=== PATIENT | male | born 1980 | race Caucasian/White ===

== ENCOUNTER 2024-12-26 19:32 | Emergency (ER) | payer OTHER, SELFPAY ==
[2024-12-26 19:34] VITALS: BP 152/86; PULSE 111; RESP 20; TEMP 36.7; O2SAT 97; BMI 30.8
--- NOTE | 2024-12-26 19:47 | EKG12_ITS ---
Test Reason : DYSRHYTHMIA Blood Pressure : */* mmHG Vent. Rate : 112 BPM Atrial Rate : 112 BPM P-R Int : 126 ms QRS Dur : 96 ms QT Int : 344 ms P-R-T Axes : 57 79 -17 degrees QTcB Int : 469 ms Sinus tachycardia T wave abnormality, consider inferior ischemia Abnormal ECG Confirmed by DORA GUTIERREZ, GIORGI ([id number]), video news editor SUE FALLON ([id number]) on 12/27/2024 1:28:27 PM Referred By: Confirmed By: GIORGI JOHN MD
--- NOTE | 2024-12-26 19:49 | EDS_ITS ---
HPI History of Present Illness Chief Complaint: Upper Extremity Injury Narrative Narrative: Patient is a 44-year-old male with past medical history of hypertension, hyperlipidemia who presents to the emergency department with a chief complaint of left shoulder pain. He states that he has had shoulder pain for about a week after picking up a heavy desk and the pain has progressively worsened. He states that he can barely move his shoulder and is concerned that he may have dislocated his shoulder. He states that he did not have any direct trauma other than picking this desk up. Patient states that he tried multiple [id number] medications to help his pain and this is not tested prompting him to come here to the emergency department. He states that he is from out of town from [place] for his job. [facility] Medical History Hyperlipemia Hypertension Home Medications ?Medication ?Instructions ?Recorded ?Last Taken ?Type ondansetron 4 mg disintegrating 4 mg PO Q6H PRN nausea and 12/26/24 Unknown Rx tablet vomiting #20 tabs oxycodone-acetaminophen 5 mg-325 1 tab PO Q6H PRN pain 2 days #8 12/26/24 Unknown Rx mg tablet (Endocet) tabs Allergy/AdvReac Type Severity Reaction Status Date / Time Iodinated Contrast Media (iv Allergy Anaphylaxis Verified 12/26/24 19:36 contrast) Social History housing: house Smoking Status: Never smoker ROS ROS ED ROS Narrative Constitutional: Denies any fevers, chills, headaches Neurological: Denies any numbness, tingling Musculoskeletal: Complains of left shoulder pain Skin: Denies rashes or lesions EXAM Physical Exam Narrative Exam Narrative: General: Patient was sitting in a chair at bedside did appear to be uncomfortable secondary to his left shoulder pain Head: Atraumatic, normocephalic Eyes: PERRL bilaterally, EOMI bilaterally, no conjunctival injection noted Neck: Soft, supple, trachea midline Cardiovascular: Patient is tachycardic with a regular rhythm Musculoskeletal: Patient can lift his left shoulder to approximately 90 degrees before starting to develop discomfort he states that he has pain if he attempts to externally rotate his shoulder. Empty can test positive Extremities: Radial pulses +2/4 in the bilateral extremities, +4/5 strength noted in the bilateral upper extremities, patient is able to abduct adduct his fingers bilaterally without difficulty give me a thumbs up and oppose his thumb to his pinky. He is also able to give an okay sign Neurological: Patient following commands knew that he was at [facility] year is 2024. Sensation grossly intact in the median, ulnar, radial and axillary nerve distribution bilaterally Skin: Warm, dry, intact no rashes or lesions noted Const Vital Signs: 12/26/24 19:34 Temperature 98.1 F Temperature Source Oral Pulse Rate 111 H Respiratory Rate 20 H Blood Pressure 152/86 H Blood Pressure Mean 108 Pulse Ox 97 Oxygen Delivery Method Room Air MDM MDM MDM Narrative Medical decision making narrative: Patient is a 44-year-old male who presents to the emergency department chief complaint of left shoulder pain. On the differential diagnose includes but not limited to musculoskeletal strain, rotator cuff tear, shoulder dislocation although have low suspicion for this. Once the workup is obtained reviewed he will be reevaluated. Patient be given Daisy and Zofran. Patient's shoulder x-ray reviewed from [facility] radiology which showed advanced degenerative changes no fracture or dislocation. On reevaluation the patient at 9:00 PM he is feeling better he would like to go home at this point time. Patient is advised to rotate Tylenol and ibuprofen [id number] and use the Percocet/Endocet and Zofran for severe pain he is advised to not operate anything under the influence of this. He is advised that he needs to follow-up with orthopedics for potential MRI as he likely tore his rotator cuff. He was offered sling for comfort he states that he does not want this. He is encouraged return with worsening symptoms or other concerns. All question concerns answered is discharged home in stable condition Discharge Plan Triage Chief Complaint: Upper Extremity Injury ED Provider: Gilmer Crystal Dx/Rx/DC Orders Clinical Impression: Left shoulder pain, Torn rotator cuff, History of hypertension Prescriptions: New ondansetron 4 mg tablet,disintegrating 4 mg PO Q6H PRN (Reason: nausea and vomiting) Qty: 20 0RF oxycodone-acetaminophen [Endocet] 5-325 mg tablet 1 tab PO Q6H PRN (Reason: pain) 2 Days Qty: 8 0RF Primary Care Provider: Care Physician,No Primary Referrals: Spittle,Mati, DO [Med Staff - Active Staff, Orthopedics] Care Physician,No Primary [Primary Care Provider, Medical] Activity Restrictions/Additional Instructions: Your x-ray did not show any dislocations or broken bones. Follow-up with the orthopedic team that you are referred to. Return with worsening symptoms or other concerns. Rotate Tylenol and ibuprofen [id number] when you do this you can take something every 3 hours for pain with max dose Tylenol in 24 hours 4000 mg max dose of ibuprofen and 24 hours 3200 mg. Use the Endocet and Zofran together for severe pain do not operate anything out of the influence of the Endocet as all make you sleepy and drowsy. Print Language: Azeri Disposition Disposition: Home, Self Care
--- NOTE | 2024-12-26 19:56 | RAD_ITS ---
PROCEDURE: SHOULDER MIN 2 VIEWS 12/26/2024 REASON FOR EXAM: SHOULDER PAIN TECHNIQUE: Procedure Code: RADSH Modality: DX Procedure: SHOULDER MIN 2 VIEWS Laterality: Left COMPARISON: None FINDINGS: Bones: Diffuse osteopenia of visualized bones. 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 Soft tissues: Mild soft tissue swelling overlying shoulder joint. 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 No visible fracture if t here is ongoing clinical suspicion for fracture deformity follow-up imaging in 7-10 days is recommended. Reading Location: [id number]
[2024-12-26] MEDS: HYDROcodone Bitartrate/Apap 5/325 Tablet PO (20:06)
[2024-12-26 21:00] VITALS: BP 148/80; PULSE 70; RESP 20; TEMP 36.7; O2SAT 97
== END 2024-12-26 21:21 | disposition home or self-care (01) ==
PROVIDERS: Emergency Provider Emergency Medicine; Visit Provider Emergency Medicine
DX: S46.012A Strain of muscle(s) and tendon(s) of the rotator cuff of left shoulder, initial encounter (principal); M19.012 Primary osteoarthritis, left shoulder; E78.5 Hyperlipidemia, unspecified; I10 Essential (primary) hypertension; X50.0XXA Overexertion from strenuous movement or load, initial encounter
CPT/HCPCS: 73030; 93005; 99283